=== PATIENT | male | born 1930 | race Caucasian/White ===

== ENCOUNTER → 2016-12-15 | Outpatient (CLI) | payer OTHER ==
[~2016-12-15] VITALS: Ht 167.6 cm; Wt 73.8 kg
[~2016-12-15] MED LIST: ASPIR 8181 MG PO; ATORVASTATIN CA40 MG PO; CALCIUM 600 +1 EAC8 PO; COLACE100 MG PO; NORCO 5-325 TA1 EACH PO; OMEPRAZOLE 20 M20 M1 PO; PLAVIX 75 MG TA75 M1 PO; PROBIOTIC1 EAC1 PO; PROZAC20 MG PO; SYNTHROID100 MCG PO; VITAMIN D2000 UNIT PO
[2016-12-15 13:29] VITALS: BP 150/79
== END ==
LOC: PAIN 07:08
DX: I10 Essential (primary) hypertension (principal); E05.90 Thyrotoxicosis, unspecified without thyrotoxic crisis or storm; E78.5 Hyperlipidemia, unspecified